=== PATIENT | female | born 1935 | race Caucasian/White ===

== ENCOUNTER 2017-05-24 09:41 | Outpatient (CLI) | payer MEDICARE, OTHER ==
[~2017-05-24 09:41] MED LIST: AMLO5TAB PO; CARV25TA2 PO; LISI40TA4 PO; MULT-1133 PO
[2017-05-24 10:19] LABS: BASOPHILS % (AUTO) 0.6 % (0-1); EOSINOPHILS # (AUTO) 0.4 X10'3 (0-0.9); EOSINOPHILS % (AUTO) 6.8 % (0-6); HEMATOCRIT 43.1 % (35.0-45.0); HEMOGLOBIN 14.4 g/dl (12.0-16.0); LYMPHOCYTES # (AUTO) 1.2 X10'3 (1.1-4.8); LYMPHOCYTES % (AUTO) 21.1 % (21-51); MEAN CORPUSCULAR HEMOGLOBIN 32.8 PG (27.0-31.0); MEAN CORPUSCULAR HGB CONC 33.5 % (33.0-36.5); MEAN CORPUSCULAR VOLUME 97.9 FL (78-98); MEAN PLATELET VOLUME 8.4 FL (7.4-10.4); MONOCYTES # (AUTO) 0.4 X10'3 (0-0.9); MONOCYTES % (AUTO) 6.3 % (2-12); NEUTROPHILS # (AUTO) 3.8 X10'3 (1.8-7.7); NEUTROPHILS % (AUTO) 65.2 % (42-75); PLATELET COUNT 158 X10'3 (140-440); RED CELL DISTRIBUTION WIDTH 14.4 % (11.5-14.5); WHITE BLOOD COUNT 5.9 X10'3 (4.5-11.0)
[2017-05-24 10:23] LABS: CLARITY,URINE Clear (Clear); COLOR,URINE Yellow (Yellow); GLUCOSE, URINE Negative (Neg); KETONES,URINE Negative (Neg); LEUKOCYTE ESTERASE ,URINE Negative (Neg); NITRITES, URINE Negative (Neg); OCCULT BLOOD,URINE Negative (Neg); PROTEIN,URINE Negative (Neg)
[2017-05-24 10:31] LABS: UA COLLECTION TYPE CLN CATCH MIDSTREAM
[2017-05-24 10:32] LABS: INR 0.9 INR; PROTHROMBIN TIME 9.8 SECONDS (9.0-12.0)
[2017-05-24 10:37] LABS: ALANINE AMINOTRANSFERASE 21 U/L (12-78); ALBUMIN/GLOBULIN RATIO 1.1 (1.1-1.5); ALKALINE PHOSPHATASE 89 IU/L (46-116); ANION GAP 9 (8-16); ASPARTATE AMINO TRANSFERASE 11 U/L (10-37); BILIRUBIN,TOTAL 0.4 MG/DL (0.1-1.0); BLOOD UREA NITROGEN 18 MG/DL (7-18); BUN/CREATININE RATIO 23.4 (6.6-38.0); CALCIUM 9.6 MG/DL (8.5-10.1); CHLORIDE 106 MMOL/L (99-107); CREATININE 0.77 MG/DL (0.40-0.90); GLUCOSE 111 MG/DL (70-104); POTASSIUM 4.2 MMOL/L (3.5-5.1); SODIUM 145 MMOL/L (135-145); TOTAL CARBON DIOXIDE 30.4 MMOL/L (24-32); TOTAL PROTEIN 7.6 G/DL (6.4-8.2); eGFR 72 ML/MIN
[2017-06-01] MEDS ORDERED: HYDR-569 PO (09:10)
[2017-06-01] MEDS ORDERED: PANT40TA4 PO (17:02)
== END 2017-05-24 23:59 | disposition home or self-care (01) ==
LOC: LAB 09:41
PROVIDERS: ATTEND Specialist
DX: Z01.818 Encounter for other preprocedural examination (principal); Z51.81 Encounter for therapeutic drug level monitoring; N39.0 Urinary tract infection, site not specified; I10 Essential (primary) hypertension; Z85.3 Personal history of malignant neoplasm of breast
CPT/HCPCS: 36415; 80053; 81003; 85025; 85610; 87070

== ENCOUNTER 2017-06-05 08:07 | Inpatient (IN) | payer MEDICARE, OTHER ==
[2017-06-05] VITALS (19 sets, daily range): BP systolic 101–123; BP diastolic 53–84
[~2017-06-05] VITALS: Ht 162.6 cm; Wt 72.1 kg
[~2017-06-05 08:07] MED LIST changes: +DOCUMENT DATE & TIME OF BETA-BLOCKER PO ONE; +HYDR-569 PO; +PANT40TA4 PO; +acetaminophen 325mg tablet PO ONE; +albuterol 2.5 MG/3 ML nebule NEB ONE; +ceFAZolin 2gm in dextrose, iso 100 ML IV ONE; +famotidine 20mg tablet PO ONE; +gabapentin 300mg capsule PO ONE; +metoclopramide 5 mg/ml inj IV ONE; +oxyCODONE SR 10mg (sust. release) tab PO ONE; +ringers solution, lacted 1,000 ML IV SCH; +tranexamic acid inj. 1,000 MG in normal saline 100ml IV soln 90 ML IV ONE; +vancomycin inj 1,500 MG in normal saline 300ml IV soln IV ONE
[2017-06-05] MEDS ORDERED: bacitracin inj 150,000 UNIT in sodium chloride irrig. sol 3,000 ML IR ONE (09:00)
[2017-06-05] MEDS ORDERED: LIDOcaine 1% (10mg/ml) 2ml vial ONE (09:01)
[2017-06-05] MEDS ORDERED: ROPIVAcaine 0.5% (5mg/ml) 30ml vial ONE (09:42)
[2017-06-05] MEDS ORDERED: MORPHINE SULFATE/PF 0.5 MG/ML 10ML AMPUL ONE (09:58)
[2017-06-05] MEDS ORDERED: MIDAZolam 1mg/ml 10ml vial ONE (09:58)
[2017-06-05] MEDS ORDERED: epiNEPHrine 1 mg/ml inj ONE (10:21)
[2017-06-05] MEDS ORDERED: propofol inj 20 ML IV ONE (10:31)
[2017-06-05] MEDS ORDERED: naloxone 2mg/2ml inj 1.3 MG in normal saline 500ml IV soln 500 ML IV PRN (10:55)
[2017-06-05] MEDS ORDERED: meperidine/PF 25mg/ml syringe IV PRN ×2 (10:55)
[2017-06-05] MEDS ORDERED: ondansetron/PF 4mg/2ml inj IV PRN ×3 (10:55→12:30)
[2017-06-05] MEDS ORDERED: proCHLORperazine 10 MG/2 ml inj IV PRN (10:55)
[2017-06-05] MEDS ORDERED: meperidine/PF 25mg/ml syringe IV ONE (10:55)
[2017-06-05] MEDS ORDERED: diphenhydrAMINE 50 mg/ml inj IV PRN (10:55)
[2017-06-05] MEDS ORDERED: ringers solution, lacted 1,000 ML IV SCH (10:55)
[2017-06-05] MEDS ORDERED: ePHEDrine 50MG/ML INJ. ONE (11:56)
[2017-06-05] MEDS ORDERED: cloNIDine hcl/PF 100mcg/ml inj ONE (12:28)
[2017-06-05] MEDS ORDERED: dexamethasone 4mg/ml inj ONE (12:28)
[2017-06-05] MEDS ORDERED: bisacodyl 10mg suppository rectal RC PRN (12:30)
[2017-06-05] MEDS ORDERED: diphenhydrAMINE 25mg capsule PO PRN ×2 (12:30)
[2017-06-05] MEDS ORDERED: acetaminophen 325mg tablet PO PRN ×2 (12:30→20:39)
[2017-06-05] MEDS ORDERED: magnesium hydroxide 30ml (MOM) UD suspension PO PRN (12:30)
[2017-06-05] MEDS: potassium cl 20mEq in 1/2 NS 1,000 ML IV SCH ×2 (16:12→23:40)
[2017-06-05] MEDS: cefazolin 1gm/NS 100mL 100 ML IV SCH ×2 (16:13→23:38)
[2017-06-05] MEDS: gabapentin 300mg capsule PO SCH ×2 (16:14→20:28)
[2017-06-05] MEDS: acetaminophen 325mg tablet PO SCH ×2 (16:14→20:28)
[2017-06-05] MEDS ORDERED: vancomycin/NS 1 GM ADD-VANTAGE 250 ML IV SCH (20:00)
[2017-06-05] MEDS: ascorbic acid 500mg tablet PO SCH (20:28)
[2017-06-05] MEDS: carVEDilol 12.5mg tablet PO SCH (20:28)
[2017-06-05] MEDS: lisinopril 20mg tablet PO SCH (20:28)
[2017-06-05] MEDS: celeCOXIB 100mg capsule PO SCH (20:28)
[2017-06-05] MEDS: sennosides 8.6mg tablet PO SCH (20:28)
[2017-06-05] MEDS: amLODIPine 5mg tablet PO SCH (20:29)
[2017-06-06] MEDS: oxyCODONE IR 5mg (immed. release) tablet PO PRN ×5 (01:53→21:06)
[2017-06-06] MEDS: acetaminophen 325mg tablet PO SCH ×4 (01:53→20:18)
[2017-06-06 02:00] VITALS: BP 128/68
[2017-06-06 06:00] VITALS: BP 131/71
[2017-06-06 06:22] LABS: BASOPHILS % (AUTO) 0 % (0-1); EOSINOPHILS # (AUTO) 0.1 X10'3 (0-0.9); EOSINOPHILS % (AUTO) 1.4 % (0-6); HEMATOCRIT 34.6 % (35.0-45.0); HEMOGLOBIN 11.7 g/dl (12.0-16.0); LYMPHOCYTES # (AUTO) 0.5 X10'3 (1.1-4.8); LYMPHOCYTES % (AUTO) 5.7 % (21-51); MEAN CORPUSCULAR HEMOGLOBIN 33.1 PG (27.0-31.0); MEAN CORPUSCULAR HGB CONC 33.8 % (33.0-36.5); MEAN CORPUSCULAR VOLUME 97.9 FL (78-98); MEAN PLATELET VOLUME 8.6 FL (7.4-10.4); MONOCYTES # (AUTO) 0.3 X10'3 (0-0.9); MONOCYTES % (AUTO) 3.8 % (2-12); NEUTROPHILS # (AUTO) 7.2 X10'3 (1.8-7.7); NEUTROPHILS % (AUTO) 89.1 % (42-75); PLATELET COUNT 167 X10'3 (140-440); RED BLOOD COUNT 3.53 X10'6 (4.20-5.60); RED CELL DISTRIBUTION WIDTH 13.7 % (11.5-14.5)
[2017-06-06 06:38] LABS: INR 1.6 INR; PROTHROMBIN TIME 16.4 SECONDS (9.0-12.0)
[2017-06-06] MEDS: potassium cl 20mEq in 1/2 NS 1,000 ML IV SCH ×3 (07:08→20:28)
[2017-06-06 07:14] LABS: ANION GAP 8 (8-16); CHLORIDE 106 MMOL/L (99-107); POTASSIUM 4.3 MMOL/L (3.5-5.1); SODIUM 140 MMOL/L (135-145); TOTAL CARBON DIOXIDE 25.9 MMOL/L (24-32)
[2017-06-06] MEDS: celeCOXIB 100mg capsule PO SCH ×2 (08:06→20:18)
[2017-06-06] MEDS: carVEDilol 12.5mg tablet PO SCH ×2 (08:08→20:19)
[2017-06-06] MEDS: pantoprazole 40mg Tablet.DR PO SCH (08:09)
[2017-06-06] MEDS: gabapentin 300mg capsule PO SCH ×3 (08:09→20:18)
[2017-06-06] MEDS: multivitamins, therapeutics tablet PO SCH (08:10)
[2017-06-06] MEDS: lisinopril 20mg tablet PO SCH ×2 (08:11→20:18)
[2017-06-06] MEDS: ascorbic acid 500mg tablet PO SCH ×2 (08:11→20:18)
[2017-06-06] MEDS ORDERED: warfarin 3mg tablet PO ONE (10:00)
[2017-06-06 11:00] VITALS: BP 111/62
[2017-06-06 15:00] VITALS: BP 126/60
[2017-06-06] MEDS: HYDROmorphone inj. 0.5 MG/0.5 ML DISP.SYRIN IV PRN ×2 (18:05→22:02)
[2017-06-06 18:30] VITALS: BP 156/82
[2017-06-06] MEDS: sennosides 8.6mg tablet PO SCH (20:18)
[2017-06-06] MEDS: amLODIPine 5mg tablet PO SCH (20:18)
[2017-06-07] MEDS: acetaminophen 325mg tablet PO SCH (01:32)
[2017-06-07] MEDS: oxyCODONE IR 5mg (immed. release) tablet PO PRN (01:32)
[2017-06-07] MEDS: potassium cl 20mEq in 1/2 NS 1,000 ML IV SCH (04:28)
[2017-06-07] MEDS: oxyCODONE/APAP 10/325mg tablet PO PRN ×4 (06:01→20:38)
[2017-06-07 06:43] LABS: BASOPHILS % (AUTO) 0.2 % (0-1); EOSINOPHILS # (AUTO) 0.1 X10'3 (0-0.9); EOSINOPHILS % (AUTO) 1.5 % (0-6); HEMATOCRIT 33.7 % (35.0-45.0); HEMOGLOBIN 11.4 g/dl (12.0-16.0); LYMPHOCYTES # (AUTO) 1.5 X10'3 (1.1-4.8); LYMPHOCYTES % (AUTO) 18.5 % (21-51); MEAN CORPUSCULAR HEMOGLOBIN 33.6 PG (27.0-31.0); MEAN CORPUSCULAR VOLUME 98.6 FL (78-98); MEAN PLATELET VOLUME 8.5 FL (7.4-10.4); MONOCYTES # (AUTO) 0.7 X10'3 (0-0.9); MONOCYTES % (AUTO) 8.1 % (2-12); NEUTROPHILS % (AUTO) 71.7 % (42-75); PLATELET COUNT 172 X10'3 (140-440); RED BLOOD COUNT 3.41 X10'6 (4.20-5.60); RED CELL DISTRIBUTION WIDTH 14.2 % (11.5-14.5); WHITE BLOOD COUNT 8.3 X10'3 (4.5-11.0)
[2017-06-07 06:59] LABS: INR 1.4 INR; PROTHROMBIN TIME 14.5 SECONDS (9.0-12.0)
[2017-06-07 07:08] VITALS: BP 135/68
[2017-06-07] MEDS: celeCOXIB 100mg capsule PO SCH ×2 (07:48→20:38)
[2017-06-07] MEDS: gabapentin 300mg capsule PO SCH ×3 (07:48→20:38)
[2017-06-07] MEDS: carVEDilol 12.5mg tablet PO SCH ×2 (07:48→20:39)
[2017-06-07] MEDS: multivitamins, therapeutics tablet PO SCH (07:48)
[2017-06-07] MEDS: ascorbic acid 500mg tablet PO SCH ×2 (07:48→20:38)
[2017-06-07] MEDS: pantoprazole 40mg Tablet.DR PO SCH (07:48)
[2017-06-07] MEDS: lisinopril 20mg tablet PO SCH ×2 (07:48→20:38)
[2017-06-07] MEDS ORDERED: warfarin 5mg tablet PO ONE (10:00)
[2017-06-07] MEDS ORDERED: acetaminophen 325mg tablet PO PRN (12:30)
[2017-06-07 12:58] VITALS: BP 126/71
[2017-06-07 15:00] VITALS: BP 109/66
[2017-06-07 18:00] VITALS: BP 95/59
[2017-06-07] MEDS: sennosides 8.6mg tablet PO SCH (20:38)
[2017-06-07] MEDS: amLODIPine 5mg tablet PO SCH (20:39)
[2017-06-07 20:43] VITALS: BP 134/72
[2017-06-07 22:00] VITALS: BP 127/69
[2017-06-08 05:00] VITALS: BP 137/74
[2017-06-08] MEDS: oxyCODONE/APAP 10/325mg tablet PO PRN ×2 (05:24→09:46)
[2017-06-08 06:38] LABS: BASOPHILS % (AUTO) 0.4 % (0-1); EOSINOPHILS # (AUTO) 0.2 X10'3 (0-0.9); EOSINOPHILS % (AUTO) 2.8 % (0-6); HEMOGLOBIN 10.5 g/dl (12.0-16.0); LYMPHOCYTES # (AUTO) 1.5 X10'3 (1.1-4.8); LYMPHOCYTES % (AUTO) 18.7 % (21-51); MEAN CORPUSCULAR HEMOGLOBIN 33.1 PG (27.0-31.0); MEAN CORPUSCULAR VOLUME 97.5 FL (78-98); MEAN PLATELET VOLUME 7.9 FL (7.4-10.4); MONOCYTES # (AUTO) 0.7 X10'3 (0-0.9); MONOCYTES % (AUTO) 8.9 % (2-12); NEUTROPHILS # (AUTO) 5.4 X10'3 (1.8-7.7); NEUTROPHILS % (AUTO) 69.2 % (42-75); PLATELET COUNT 183 X10'3 (140-440); RED BLOOD COUNT 3.18 X10'6 (4.20-5.60); RED CELL DISTRIBUTION WIDTH 13.9 % (11.5-14.5); WHITE BLOOD COUNT 7.8 X10'3 (4.5-11.0)
[2017-06-08 06:45] LABS: INR 1.5 INR; PROTHROMBIN TIME 15.5 SECONDS (9.0-12.0)
[2017-06-08] MEDS ORDERED: ASPI-1264 PO (08:17)
[2017-06-08] MEDS: celeCOXIB 100mg capsule PO SCH (08:43)
[2017-06-08] MEDS: lisinopril 20mg tablet PO SCH (08:44)
[2017-06-08] MEDS: ascorbic acid 500mg tablet PO SCH (08:44)
[2017-06-08] MEDS: multivitamins, therapeutics tablet PO SCH (08:44)
[2017-06-08] MEDS: gabapentin 300mg capsule PO SCH (08:44)
[2017-06-08] MEDS: carVEDilol 12.5mg tablet PO SCH (08:44)
[2017-06-08] MEDS: pantoprazole 40mg Tablet.DR PO SCH (08:44)
[2017-06-08 10:00] VITALS: BP 117/58
[2017-06-08] MEDS ORDERED: warfarin 4mg tablet PO ONE (10:00)
== END 2017-06-08 11:45 | disposition home health service (06) | DRG 470 ==
LOC: PAS IN 08:07 → EDSTATUS 10:15 → ORTHO 4S 14:25
PROVIDERS: ADMIT Specialist; ATTEND Specialist
PROC: 3E0T3BZ Introduction of Anesthetic Agent into Peripheral Nerves and Plexi, Percutaneous Approach (ICD-10-PCS; 2017-06-05)
PROC: 0SRD0J9 Replacement of Left Knee Joint with Synthetic Substitute, Cemented, Open Approach (ICD-10-PCS; principal; 2017-06-05 09:52)
DX: M17.12 Unilateral primary osteoarthritis, left knee (principal); D62 Acute posthemorrhagic anemia; F32.9 Major depressive disorder, single episode, unspecified; I10 Essential (primary) hypertension; K21.9 Gastro-esophageal reflux disease without esophagitis; F17.210 Nicotine dependence, cigarettes, uncomplicated; Z90.710 Acquired absence of both cervix and uterus; Z88.8 Allergy status to other drugs, medicaments and biological substances; Z79.899 Other long term (current) drug therapy; Z85.3 Personal history of malignant neoplasm of breast
CPT/HCPCS: 36415; 73560; 80051; 85025; 85610; 97110; 97116; 97161; 97530; A6258; A6449; A6455; A7000; C1713; C1758; C1776; J0171; J0690; J0735; J1100; J1170; J2250; J2274; J2704; J2765; J2795; J3370; J3490; J7030; J7120